=== PATIENT | male | born 1950 | race Caucasian/White ===

== ENCOUNTER 2020-06-05 09:57 | Day surgery (SDC) | payer MEDICARE ==
[~2020-06-05] VITALS: Ht 180.3 cm; Wt 94.2 kg
[~2020-06-05 09:57] MED LIST: AMLO10 PO; ASCO500 PO; ATORVASTATIN CA20 MG PO; Aspir 8181 MG PO; GLUCOSAMINE &1 EACH PO; HYDCHL25 PO; MOVE FREE ULTR1 EACH PO; NAPR220 PO; Saw Palmetto450 MG PO; TOCO400; VITA25000 PO; VITAMIN D-32000 UNIT PO; Vitamin K100 MCG PO
== END 2020-06-05 12:10 | disposition home or self-care (01) ==
LOC: ORSCSDS 09:57
PROVIDERS: Surgery
PROC: 0DBN8ZX Excision of Sigmoid Colon, Via Natural or Artificial Opening Endoscopic, Diagnostic (ICD-10-PCS; principal; 2020-06-05 11:30)
DX: Z12.11 Encounter for screening for malignant neoplasm of colon (principal); Z86.010 Personal history of colon polyps; D12.5 Benign neoplasm of sigmoid colon; I10 Essential (primary) hypertension; E66.9 Obesity, unspecified; Z68.29 Body mass index [BMI] 29.0-29.9, adult; Z79.82 Long term (current) use of aspirin; Z79.899 Other long term (current) drug therapy
CPT/HCPCS: 88305; J2704; J7120